=== PATIENT | female | born 1995 | race Caucasian/White ===

== ENCOUNTER 2016-11-12 13:50 | Emergency (ER) | payer OTHER ==
[2016-11-12 14:36] LABS: BILIRUBIN,URINE NEGATIVE (NEGATIVE); UA w/ MICROSCOPIC CHARGE YES
--- NOTE | 2016-11-12 14:38 | ED Physician Documentation ---
PD HPI URI - Stated complaint Stated Complaint: FLU LIKE SX - Chief complaint Chief Complaint: General - History obtained from History obtained from: Patient - History of Present Illness Timing - onset: Last night Timing duration: Days (1) Timing details: Abrupt onset Associated symptoms: Fever, Other (nausea, general weakness, achiness. Some sore throat. No cough nor congestion.) Contributing factors: No: Sick contact, Travel, Immunocompromised Similar symptoms before: Has not had sx before Recently seen: Not recently seen Review of Systems Constitutional: reports: Fever, Chills, Myalgias, Fatigue Nose: denies: Rhinorrhea / runny nose, Congestion Throat: reports: Sore throat Cardiac: denies: Chest pain / pressure Respiratory: denies: Dyspnea, Cough GI: reports: Nausea. denies: Abdominal Pain, Vomiting, Diarrhea : denies: Dysuria, Frequency Skin: denies: Rash, Lesions Neurologic: reports: Generalized weakness, Headache. denies: Altered mental status, Head injury Immunocompromised: denies: Immunocompromised, Asplenic PD PAST MEDICAL HISTORY - Past Medical History Past Medical History: Yes Psych: Anxiety - Present Medications Home Medications: Ambulatory Orders Medication Instructions Recorded Confirmed Cephalexin [Keflex] 500 mg PO QID #24 capsule 11/12/16 11/14/16 Dexamethasone [Decadron] 4 mg PO DAILY #5 tablet 11/12/16 11/14/16 Ondansetron Odt [Zofran] 4 mg TL Q6H PRN #15 tablet 11/12/16 11/14/16 Sertraline [Zoloft] 50 mg PO DAILY 11/14/16 11/14/16 busPIRone [Buspar] 1 tab PO DAILY 11/14/16 11/14/16 - Allergies Allergies/Adverse Reactions: Allergies Allergy/AdvReac Type Severity Reaction Status Date / Time No Known Drug Allergies Allergy Verified 11/14/16 10:45 - Social History Does the pt smoke?: No Smoking Status: Never smoker PD ED PE NORMAL - Vitals Vital signs reviewed: Yes - General General: Alert and oriented X 3, Well developed/nourished - HEENT HEENT: Atraumatic, Ears normal, Moist mucous membranes. No: Pharynx benign ( redness with some swelling tonsils. No peritonsillar swelling. ) - Neck Neck: Supple, no meningeal sign, Other (anterior adenopathy.) - Cardiac Cardiac: RRR (mild tachycardia), No murmur - Respiratory Respiratory: Clear bilaterally - Abdomen Abdomen: Soft, Non tender - Derm Derm: Normal color, Warm and dry, No rash Results - Vitals Vitals: Oxygen O2 Source Room air - Labs Labs: Laboratory Tests 11/12/16 11/12/16 11/12/16 14:11 14:11 14:59 Urine Color YELLOW Urine Clarity CLEAR Urine pH 7.0 Ur Specific [place] 1.015 1.015 Urine Protein TRACE Urine Glucose (UA) NEGATIVE Urine Ketones TRACE Urine Occult Blood NEGATIVE Urine Nitrite NEGATIVE Urine Bilirubin NEGATIVE Urine Urobilinogen 0.2 (NORMAL) Ur Leukocyte Esterase SMALL H Urine RBC None Seen Urine WBC 6-10 H Ur Squamous Epith Cells MANY Squamous H Urine Bacteria Many H Ur Microscopic Review INDICATED Urine Culture Comments NOT INDICATED Urine HCG, Qual NEGATIVE Group A Strep Rapid POSITIVE H PD MEDICAL DECISION MAKING - ED course Complexity details: reviewed results, considered differential, d/w patient Departure - Departure Disposition: Home, Self Care Clinical Impression: Strep pharyngitis, Generalized weakness Condition: Stable Record reviewed to determine appropriate education?: Yes Instructions: ED Strep Pharyngitis Conf Follow-Up: [facility] [Provider Group] Prescriptions: Dexamethasone [Decadron] 4 mg PO DAILY #5 tablet Cephalexin [Keflex] 500 mg PO QID #24 capsule Ondansetron Odt [Zofran] 4 mg TL Q6H PRN #15 tablet PRN Reason: Nausea / Vomiting Comments: Drink lots of fluids. Cephalexin as directed for strep throat. Decadron can help with swelling of throat. Zofran if need for nausea. Tylenol as needed for fevers and pains. Rest off work 2-3 days. Recheck if not improving over the next 2-3 days. Forms: Activity restrictions Discharge Date/Time: 11/12/16 16:16
[2016-11-12 14:42] LABS: UR CULTURE IF IND NOT INDICATED
[2016-11-12] MEDS ORDERED: ONDANSETRON ODT 4 MG TABLET TL STA (15:00)
[2016-11-12] MEDS ORDERED: diazePAM 5 MG TABLET PO STA (15:00)
[2016-11-12] MEDS ORDERED: diazePAM 5 MG TABLET PO ONE (15:01)
[2016-11-12] MEDS ORDERED: ONDANSETRON ODT 4 MG TABLET ONE (15:01)
[2016-11-12 15:18] LABS: HCG UR QUAL NEGATIVE
[2016-11-12 15:37] LABS: RAPID STREP SCREEN REAGENT QC YELLOW (YELLOW)
[2016-11-12] MEDS ORDERED: CEPHALEXIN 250 MG CAPSULE PO STA (15:55)
[2016-11-12] MEDS ORDERED: DEXAMETHASONE 10 MG/ML VIAL PO STA (16:01)
[2016-11-12] MEDS ORDERED: DEXAMETHASONE 10 MG/ML VIAL ONE (16:05)
[2016-11-12] MEDS ORDERED: CEPHALEXIN 250 MG CAPSULE PO ONE (16:05)
[2016-11-12 16:10] VITALS: BP 93/65
== END 2016-11-12 16:16 | disposition home or self-care (01) ==
LOC: ED 13:50
DX: J02.0 Streptococcal pharyngitis (principal); R53.1 Weakness
CPT/HCPCS: 81001; 81025; 87430; 99283; A9270; Q0162; 81003; 87086

== ENCOUNTER 2016-11-14 10:40 | Emergency (ER) | payer OTHER ==
--- NOTE | 2016-11-14 11:42 | ED Physician Documentation ---
History of Present Illness - Stated complaint Stated Complaint: CP - Chief complaint Chief Complaint: Cardiac - Additonal information Additional information: hx from pt 21 healthy female being txed for strep 5 min of sharp severe somewhat pleuritic left ant chest pain just [employer] now better fhx CAD but at old age no DVT hx, no OCP, non smoker, no cast/road trip, inpt stay etc, no leg pain swelling Review of Systems Constitutional: denies: Fever, Chills Cardiac: reports: Chest pain / pressure Respiratory: denies: Dyspnea GI: denies: Abdominal Pain, Nausea, Vomiting : denies: Now EGA Musculoskeletal: denies: Extremity pain, Extremity swelling Endocrine: denies: Easy bruising / bleeding Immunocompromised: denies: Immunocompromised PD PAST MEDICAL HISTORY - Past Medical History Psych: Depression, Anxiety - Present Medications Home Medications: Ambulatory Orders Medication Instructions Recorded Confirmed Cephalexin [Keflex] 500 mg PO QID #24 capsule 11/12/16 11/14/16 Dexamethasone [Decadron] 4 mg PO DAILY #5 tablet 11/12/16 11/14/16 Ondansetron Odt [Zofran] 4 mg TL Q6H PRN #15 tablet 11/12/16 11/14/16 Sertraline [Zoloft] 50 mg PO DAILY 11/14/16 11/14/16 busPIRone [Buspar] 1 tab PO DAILY 11/14/16 11/14/16 - Allergies Allergies/Adverse Reactions: Allergies Allergy/AdvReac Type Severity Reaction Status Date / Time No Known Drug Allergies Allergy Verified 11/14/16 10:45 - Social History Does the pt smoke?: No Smoking Status: Never smoker Does the pt drink ETOH?: Yes Substance Use and Type: Marijuana - Immunizations Immunizations are current?: Yes PD ED PE NORMAL - Vitals Vital signs reviewed: Yes - General General: Alert and oriented X 3 - HEENT HEENT: Atraumatic - Neck Neck: Supple, no meningeal sign - Cardiac Cardiac: RRR - Respiratory Respiratory: No respiratory distress, Clear bilaterally - Abdomen Abdomen: Soft, Non tender - Derm Derm: Normal color - Extremities Extremities: No deformity, No tenderness to palpate, Normal ROM s pain, No edema , No calf tenderness / cord - Neuro Neuro: Alert and oriented X 3 Results - Vitals Vitals: Vital Signs - 24 hr 0511/14/16 11/14/16 10:44 10:50 12:25 Temperature 36.4 C L Heart Rate 78 76 81 Respiratory 19 18 16 Rate Blood Pressure 119/82 H 128/72 O2 Saturation 98 97 100 Oxygen O2 Source Room air - Labs Labs: Laboratory Tests 11/14/16 11/14/16 11:05 11:05 WBC 17.7 H RBC 4.66 Hgb 13.4 Hct 39.7 MCV 85.3 MCH 28.9 MCHC 33.8 RDW 13.7 Plt Count 246 MPV 8.8 Neut # 14.3 H Lymph # 2.2 [place] # 1.1 H Eos # 0.0 Baso # 0.0 Absolute Nucleated RBC 0.00 Nucleated RBCs 0.0 Sodium 141 Potassium 3.2 L Chloride 105 Carbon Dioxide 27 Anion Gap 9.0 BUN 13 Creatinine 0.8 Estimated GFR (MDRD) 91 Glucose 94 Calcium 9.0 Total Bilirubin 0.3 AST 15 ALT 14 Alkaline Phosphatase 73 Total Protein 7.6 Albumin 4.1 Globulin 3.5 Albumin/Globulin Ratio 1.2 Lipase 26 - Rads (name of study) CXR Radiology: See rad report (NACPD) PD MEDICAL DECISION MAKING - ED course ED course: PERC negative CXR neg for pna pneumo wide mediastinum EKG eng pain subsided WBC noted - pt being txed for strep infection already likely pleurisy related to recent illness will reassure and dc Departure - Departure Disposition: 01 Home, Self Care Clinical Impression: Pleurisy Condition: Good Instructions: ED Chest Pain Pleurisy Follow-Up: Joshua Jacinto DO [Primary Care Provider] - Comments: Your EKG and chest xray were fine. Your blood work was fine too except for an elevated white blood cell count which is likely due to your strep infection. It does not seem you have a heart attack, blood clot in your lung, aneurysm or tear or your aorta or any other major life threatening problem. You likely have inflammation of the lining of your chest called pleurisy which can occur after infections such as your strep throat Forms: Activity restrictions
[2016-11-14 11:50] LABS: BASOPHILS % (AUTO) 0.2 %; EOSINOPHILS % (AUTO) 0.1 %; HCT - HEMATOCRIT 39.7 % (37.0-47.0); HGB - HEMOGLOBIN 13.4 g/dL (12.0-16.0); LYMPHOCYTES # (AUTO) 2.2 10^3/uL (1.5-3.5); LYMPHOCYTES % (AUTO) 12.5 %; MEAN CORPUSCULAR HEMOGLOBIN 28.9 pg (27.0-31.0); MEAN CORPUSCULAR HGB CONC 33.8 g/dL (32.0-36.0); MEAN CORPUSCULAR VOLUME 85.3 fL (81.0-99.0); MEAN PLATELET VOLUME 8.8 fL (7.9-10.8); MONOCYTES # (AUTO) 1.1 10^3/uL (0.0-1.0); MONOCYTES % (AUTO) 6.3 %; NEUTROPHILS # (AUTO) 14.3 10^3/uL (1.5-6.6); NEUTROPHILS % (AUTO) 80.9 %; RED BLOOD COUNT 4.66 10^6/uL (4.20-5.40); RED CELL DISTRIBUTION WIDTH 13.7 % (12.0-15.0); UNCORRECTED WHITE BLOOD COUNT 17.7 x10^3/uL; WHITE BLOOD COUNT 17.7 x10^3/uL (4.8-10.8)
[2016-11-14 11:59] LABS: ALBUMIN/GLOBULIN RATIO 1.2 (1.0-2.2); BILIRUBIN,TOTAL 0.3 mg/dL (0.2-1.0); CREATININE 0.8 mg/dL (0.4-1.0); POTASSIUM 3.2 mmol/L (3.5-5.0); TOTAL PROTEIN 7.6 g/dL (6.7-8.2)
--- NOTE | 2016-11-14 12:24 | XRAY Preliminary Report ---
Exam: XR Chest 2 View PA/LAT IMPRESSION: No definite acute disease. [facility] SITE ID: [id number]
--- NOTE | 2016-11-14 12:27 | XRAY Report ---
EXAM: CHEST RADIOGRAPHY EXAM DATE: 11/14/2016 11:58 AM. CLINICAL HISTORY: Cp. COMPARISON: None. TECHNIQUE: 2 views. FINDINGS: Lungs/Pleura: No localized infiltrate, consolidation, effusion, or pneumothorax. Mediastinum: Heart and mediastinal contours are unremarkable. Probable cardiac fat pad on the right, versus localized eventration. Other: None. IMPRESSION: No definite acute disease. [facility] Referring Provider Line: [phone] SITE ID: [id number]
[2016-11-14] MEDS ORDERED: POTASSIUM CHLORIDE 20 MEQ TABLET PO STA (13:17)
[2016-11-14] MEDS ORDERED: POTASSIUM CHLORIDE 20 MEQ TABLET PO ONE (13:18)
[2016-11-14 13:38] VITALS: BP 106/70
== END 2016-11-14 13:28 | disposition home or self-care (01) ==
LOC: ED 10:40
DX: R09.1 Pleurisy (principal); Z82.49 Family history of ischemic heart disease and other diseases of the circulatory system
CPT/HCPCS: 36415; 71020; 80053; 83690; 85025; 93005; 93010; 99283; 99284; A9270